=== PATIENT | female | born 1965 | race Caucasian/White ===

== ENCOUNTER 2024-11-20 14:09 | Emergency (ER) | payer BC, SELFPAY ==
--- NOTE | ~2024-11-20 | XR_ITS ---
XR foot LT min 3V Ordering provider: Sherry Benoit APRN History: . rolled injury . Comparison: None. FINDINGS: BONES: No acute fracture or dislocation. Bony fragments seen inferior to the navicular bone most like ly old fracture or nonunited apophysis. Clinical correlation for tenderness in the area advised. Calcaneus spur. Ossification of the insertion of the tendo Achilles. JOINT SPACES: Osteoarthritic changes of the first metatarsophalangeal joint. Osteoarthritic changes o f the second, third and fourth tarsometatarsal joints. No tarsal coalition. SOFT TISSUES: Normal. IMPRESSION: Bony fragments near to the navicular bone. Evaluation for tenderness in the area is advised. Otherwis e, No acute osseous abnormality left foot. Reviewed, dictated and finalized at location A. DRY HELPER IMPRESSION: Bony fragments near to the navicular bone. Evaluation for tenderness in the are a is advised. Otherwise, No acute osseous abnormality left foot.
--- NOTE | ~2024-11-20 | XR_ITS ---
XR ankle LT min 3V Ordering provider: Sherry Benoit APRN History: . rolled injury . Comparison: None. FINDINGS: BONES: No acute fracture or dislocation. JOINT SPACES: The ankle mortise is normal. SOFT TISSUES: Soft tissue swelling over the lateral malleolus. Calcaneus spur. Ossification of the insertion of the tendo Achilles. IMPRESSION: No definite acute osseous abnormality left ankle. Reviewed, dictated and finalized at location A. OLOGY CLERK
[2024-11-20 14:18] VITALS: BP 154/93; PULSE 114; RESP 20; TEMP 36.7; O2SAT 100
--- NOTE | 2024-11-20 14:34 | ED.LOWEXIN ---
HPI - Extremity Injury (Lower) General Chief Complaint: Extremity Injury, Lower Stated Complaint: left foot big toe injury Source: patient Mode of arrival: ambulatory Limitations: no limitations History of Present Illness HPI Narrative: 59-year-old female presented for complaint of left foot and ankle pain after injury last night. States she [place] Unsure how she fell but thinks she rolled the ankle. Pain is across the top of the foot, lateral ankle, and great toe. She has been able to bear weight by 'limping.' Has not taken anything for pain. denies bruising or deformity, numbness, tingling or weakness. Related Data Home Medications ?Medication ?Instructions ?Recorded ?Confirmed ?Last Taken ?Type cyanocobalamin (vitamin B-12) 2,000 mcg PO DAILY 02/08/24 04/13/24 Unknown History 2,000 mcg tablet Allergies Allergy/AdvReac Type Severity Reaction Status Date / Time Penicillins Allergy Unknown Unknown Verified 11/20/24 14:39 Review of Systems Review of Systems: CONSTITUTIONAL: Denies body aches, fever, chills CARDIOVASCULAR: Denies chest pain, palpitations, or edema. RESPIRATORY: Denies cough or dyspnea. SKIN: Denies rash, itching, or wounds. MUSCULOSKELETAL: reports left ankle and foot pain NEUROLOGIC: Denies numbness, tingling, or weakness. All systems reviewed & are unremarkable except as noted in HPI and below PMFSH Social History Social History Smoking packs per day: 1 Smoking cigarettes per day: 20.0 Smoking status: Current every day smoker (has cut down from 2ppd to 1ppd) Alcohol intake: current Alcohol use details: one weekend a month Substance use: never Living arrangements: with family Occupation/Education: occupation Gender identity (if verbalized by the patient): Female Comments At time of signature, I have reviewed and agree with nursing past medical, surgical, social and family history unless otherwise noted. Please see nursing chart for further information. There is no relevant family history pertinent to the presenting complaint Exam Narrative: GENERAL: Well-appearing CHEST: Speaks in full sentences. No respiratory distress. HEART: Regular rate and rhythm. Normal and equal peripheral pulses. EXTREMITIES: Left foot mild tender with palpation to navicular bone area. Left foot tenderness with mild warmth and erythema to 1stMTP joint dorsal surface; Decreased ROM due to pain at the joint. Left ankle and foot with normal strength and sensation. slightly limited range of motion of ankle due to 1st mtp pain with movement. Moderate swelling over left lateral malleolus. No ecchymosis, No point tenderness to lateral malleolus. No open wounds, or obvious deformity; alignment normal, pulse palpable and equal bilaterally, skin warm, dry, pink. Capillary refill less than 3 seconds. SKIN: Warm, dry NEURO: Alert and oriented x3. PSYCH: Normal mood and affect Course Course Emergency Course: Patient is aware of diagnosis, understands and agrees to treatment plan. Anticipatory guidance given. Patient agrees to follow-up as directed and is aware of reasons to seek care at the emergency department. Portions of this record may have been created with voice recognition software Level of Care: Express Care Visit Vital Signs Vital signs: Vital Signs Temperature 98.1 F 11/20/24 14:18 Pulse Rate 114 H 11/20/24 14:18 Respiratory Rate 20 11/20/24 14:18 Blood Pressure 154/93 H 11/20/24 14:18 Pulse Oximetry 100 11/20/24 14:18 Oxygen Delivery Room Air 11/20/24 14:18 Temperature 98.1 F 11/20/24 14:18 Pulse Rate 114 H 11/20/24 14:18 Respiratory Rate 20 11/20/24 14:18 Blood Pressure 154/93 H 11/20/24 14:18 Pulse Oximetry 100 11/20/24 14:18 Oxygen Delivery Room Air 11/20/24 14:18 Reviewed MDM - Extremity Injury (Lower) MDM Narrative Medical decision making narrative: Discussed physical exam findings and Xray. Advised walking boot for the tenderness to the navicular bone area. Also concern for gout and will send Rx steroid.v/u. ISIAH applied. Advised supportive measures and signs/symptoms to go to the ER. Pt is appropriate for outpt treatment and f/u. Differential Diagnosis Differential diagnosis: Likely ankle sprain and strain, fracture of toe and ankle fracture Imaging Data Radiologist's impression: Patient: Giuliana Reyna : 1965 MR#: [id number] Age: 59 Acct:[id number] Loc: [facility] ADM Date: 11/20/24Attending Dr: Ordering Physician: Sherry Benoit APRN Date of Service: 11/20/24 Procedure(s): XR foot LT min 3V Accession Number(s): [id number] cc: Sherry Benoit APRN; Basia Rdz PA-C~ XR foot LT min 3V Ordering provider: Sherry Benoit APRN History: . rolled injury . Comparison: None. FINDINGS: BONES: No acute fracture or dislocation. Bony fragments seen inferior to the navicular bone most likely old fracture or nonunited apophysis. Clinical correlation for tenderness in the area advised. Calcaneus spur. Ossification of the insertion of the tendo Achilles. JOINT SPACES: Osteoarthritic changes of the first metatarsophalangeal joint. Osteoarthritic changes of the second, third and fourth tarsometatarsal joints. No tarsal coalition. SOFT TISSUES: Normal. IMPRESSION: Bony fragments near to the navicular bone. Evaluation for tenderness in the area is advised. Otherwise, No acute osseous abnormality left foot. Patient: Giuliana Reyna : 1965 MR#: [id number] Age: 59 Acct:[id number] Loc: [facility] ADM Date: 11/20/24Attending Dr: Ordering Physician: Sherry Benoit APRN Date of Service: 11/20/24 Procedure(s): XR ankle LT min 3V Accession Number(s): [id number] cc: Sherry Benoit APRN; Basia Rdz PA-C~ XR ankle LT min 3V Ordering provider: Sherry Benoit APRN History: . rolled injury . Comparison: None. FINDINGS: BONES: No acute fracture or dislocation. JOINT SPACES: The ankle mortise is normal. SOFT TISSUES: Soft tissue swelling over the lateral malleolus. Calcaneus spur. Ossification of the insertion of the tendo Achilles. IMPRESSION: No definite acute osseous abnormality left ankle. Discharge Plan Discharge Clinical Impression: Ankle sprain and strain, Acute foot pain Patient Disposition: Home, Self-Care Condition: Stable Instructions: Ankle Sprain (ED), Gout (ED) Additional Instructions: Rest and elevate the left leg; bear weight as tolerated Recommend a walking boot. You can get them at [facility] or online. Apply ice 15-20 minute intervals several times a day Keep it wrapped with ISIAH or use a soft ankle splint Motrin 800mg every 8 hours, alternate with Tylenol 1000mg every 8 hours as needed Gout is a form of inflammatory?arthritis that causes pain and swelling in your joints. A buildup of excess uric acid in your body causes gout. Your body naturally makes uric acid when it breaks down chemicals called purines found in certain foods and drinks. Your kidneys usually filter uric acid out of your blood. Gout symptoms come and go in episodes called flares or gout attacks.?Gout attacks usually last a week or two. You might have some flares that last longer than others, and some might cause more severe symptoms. Between attacks, you might not experience any gout symptoms. Risks include: Parent/grandparent with gout Eating a lot of animal proteins ? especially animal flesh, shellfish and foods that contain organ meat. Drinking alcohol regularly. Taking a diuretic medication (water pills). Taking immunosuppressants Take medication as directed Recommend low purine diet Follow up with primary care provider/grounds restoration specialist in 1 week Go to the ER for worsening symptoms or concerns Patient Language: Macedonian Prescriptions: New methylprednisolone [Medrol (Walt)] 4 mg tablets,dose pack See Rx Instructions .ROUTE .COMPLEX Qty: 21 0RF Rx Instructions: orally per package directions No Action cyanocobalamin (vitamin B-12) 2,000 mcg tablet 2,000 mcg PO DAILY Patient Comments: alprazolam 0.5 mg tablet 0.5 mg PO BID PRN (Reason: anxiety) Qty: 60 2RF albuterol sulfate 90 mcg/actuation HFA aerosol inhaler 1 - 2 puff inhalation Q4-6H PRN (Reason: shortness of breath or wheezing) Qty: 8.5 0RF Follow-up/Referrals: Ziggy Velázquez MD [Physician] - Basia Rdz PA-C [Primary Care Provider] - Time of Disposition: 15:25
== END 2024-11-20 15:30 | disposition home or self-care (01) ==
PROVIDERS: Emergency Provider Nurse Practitioner Family; PCP Physician Assistant Medical
DX: S93.402A Sprain of unspecified ligament of left ankle, initial encounter (principal); S96.912A Strain of unspecified muscle and tendon at ankle and foot level, left foot, initial encounter; W01.0XXA Fall on same level from slipping, tripping and stumbling without subsequent striking against object, initial encounter; M79.675 Pain in left toe(s); M79.672 Pain in left foot; F17.210 Nicotine dependence, cigarettes, uncomplicated
CPT/HCPCS: 73610; 73630; 99213; G0463

== ENCOUNTER 2025-04-20 14:05 | Outpatient (CLI) | payer BC, SELFPAY ==
--- NOTE | ~2025-04-20 | MMUS_ITS ---
EXAMINATION: MM diagnostic [facility] BI w tae, US breast RT limited HISTORY: Palpable right breast lump TECHNIQUE: Additional 3-D tomosynthesis images of the breasts were performed and synthetic 2-D images were generated. CAD analysis was submitted and interpreted. High resolution Limited right breast ult rasound was performed. COMPARISON: No prior studies for comparison. BREAST PARENCHYMAL COMPOSITION: Not dense: There are scattered areas of fibroglandular density. FINDINGS: MAMMOGRAPHIC FINDINGS: There are no suspicious masses, calcifications or architectural distortion in either breast to sugges t malignancy. ULTRASOUND: Limited right breast ultrasound: Normal heterogeneous echotexture without focal solid or cystic mass. IMPRESSION: 1. No evidence for malignancy in either breast. 2. Routine yearly screening mammogram and regular clinical breast examination are recommended. BI-RADS Category 1: Negative Reviewed, dictated and finalized at location B. IMPRESSION: 1. No evidence for malignancy in either breast. 2. Routine yearly screening mammogram and regular clinical breast examination a re recommended. BI-RADS Category 1: Negative
--- OUTSIDE RECORDS SUMMARY | 2025-04-20 14:17 | XMS_ITS | Clinical Summary ---
Author Organization [facility] Address [address] [place] [address] Phone Care Team Providers Care Communications Senior Associate Name Role Phone Unavailable Primary Care Provider Unavailabl e Allergies Active Allergy Reactions Criticality Noted Date Comments Penicillins Unknown 06/14/2021 As a child, rash, shortness of breath/difficulty breathing. Has not been challenged as adult Medications ALPRAZolam (XANAX) 0.5 mg tablet Take 0.5 mg by mouth 2 times daily as needed for Anxiety. Active metroNIDAZOLE (FLAGYL) 500 mg tablet Take 1 Tablet (500 mg) by mouth 3 times daily for 7 days. 21 Tablet 06/16/2021 1:02 PM CDT 06/16/2021 Active ciprofloxacin HCl (Cipro) 500 mg tablet Take 1 Tablet (500 mg) by mouth 2 times daily for 7 days. 14 Tablet 06/16/2021 1:02 PM CDT 06/16/2021 Active Active Problems Problem Noted Date Diagnosed Date Diverticulitis 06/15/2021 Leukocytosis (leucocytosis) 06/15/2021 Tobacco use 06/15/2021 Anxiety 06/15/2021 Obesity (BMI 30.0-34.9) 06/15/2021 Social History Tobacco Use Types Packs/Day Years Used Date Smoking Tobacco: Every Day Cigarettes Smokeless Tobacco: Never Alcohol Use Standard Drinks/Week Comments Yes 0 (1 standard drink = 0.6 oz pur e alcohol) social Comments Unknown Sex and Gender Information Value Date Recorded Sex Assigned at Not on file Legal Sex Female 5:30 PM CDT Gender Identity Not on file Sexual Orientation Not on file Last Filed Vital Signs Vital Sign Reading Time Taken Comments Blood Pressure 123/90 06/16/2021 11:16 AM CDT Pulse 64 06/16/2021 11:16 AM CDT Temperature 36.8 C (98.2 F) 06/16/2021 11:16 AM CDT Respiratory Rate 16 06/16/2021 11:16 AM CDT Oxygen Saturation 95% 06/16/2021 11:16 AM CDT Inhaled Oxygen Concentration - - Weight 87.3 kg (192 lb 6.4 oz) 06/15/2021 8:06 A M CDT Height 160 cm (5' 3) 06/15/2021 8:06 AM CDT Body Mass Index 34.08 06/15/2021 8:06 AM CDT Plan of Treatment Health Maintenance Due Date Last Done Comments DTAP/TDAP/TD VACCINES (1 - Tdap) 1985 HEPATITIS B VACCINES (1 of 3 - 19+ 3-dose series) 04/1985 HPV/Cotest (21-29) 1987 CERVICAL CANCER SCREENING 1996 HPV/Cotest (30-65) 1996 PAP SMEAR 1996 BREAST CANCER SCREENING 2006 COLORECTAL SCREENING 2011 Colorectal Cancer Screening 2011 FIT-DNA Q 3 years 2011 FIT/FOBT Q 1 year 2011 Flex Sig/CT Colonography Q 5 years 2011 ZOSTER VACCINE (1 of 2) 2016 INFLUENZA VACCINE (#1) 2024 Insurance RX [employer] (INTERNAL) [facility] Advance Directives For more information, please contact: [phone] * Full Code (Latest Code Status on File) Date Activated Date Inactivated Comments 06/15/2021 6:52 AM 06/16/2021 3:13 PM
--- OUTSIDE RECORDS SUMMARY | 2025-04-20 14:17 | XMS_ITS | Clinical Summary ---
Author Organization [facility] Address [address] [place] [address] Care Team Providers Care Running Rigger Name Role Phone Unavailable Primary Care Provider Unavailabl e Source Comments [facility],non-owned Affiliates and Associated Physician Practices is amultiple site organization consisting of ambulatory clinics and hospital sitesin [place], [place], [place] and [place]. This disclosure is being madepursuant to the Care Everywhere program and may not contain all information available regarding this patient. Last updated 18.[facility] Allergies Active Allergy Reactions Criticality Noted Date Comments Penicillins Unknown 06/14/2021 As a child, rash, shortness of breath/difficulty breathing. Has not been challenged as adult Social History Tobacco Use Types Packs/Day Years Used Date Smoking Tobacco: Never Assessed Comments Unknown Sex and Gender Information Value Date Recorded Sex Assigned at Not on file Legal Sex Female 3:27 AM TREE SURGEON HELPER Gender Identity Not on file Sexual Orientation Not on file Last Filed Vital Signs Vital Sign Reading Time Taken Comments Blood Pressure 117/82 07/01/2022 11:33 PM CDT Pulse 74 07/01/2022 11:33 PM CDT Temperature 36.7 C (98 F) 07/01/2022 11:33 PM CDT Respiratory Rate 16 07/01/2022 11:33 PM CDT Oxygen Saturation 98% 07/01/2022 11:33 PM CDT Inhaled Oxygen Concentration - - Weight 93 kg (205 lb) 07/01/2022 9:01 PM CDT Height 160 cm (5' 3) 07/01/2022 9:01 PM CDT Body Mass Index 36.31 07/01/2022 9:01 PM CDT Plan of Treatment Health Maintenance Due Date Last Done Comments OGMARLIN (AGES 45-75) - COL ON CA SCREENING 1965 COLON MONITORING 1966 COLONOSCOPY - COLON CA SCREENING 1966 CT COLONOGRAPHY - COLON CA SCREENING 1966 Colorectal Cancer Screening 1966 FIT - COLON CA SCREENING 1966 FLEX SIG - COLON CA SCREENING 1966 LIPID TESTING 1966 MAMMOGRAM 1966 PAP SMEAR 1966 HIV SCREENING 1981 HEPATITIS C SCREENING 09/08/1984 DTAP/TDAP/TD VACCINES (1 - Tdap) 1985 HEPATITIS B VACCINE (1 of 3 - 19+ 3-dose series) 1985 PNEUMOCOCCAL VACCINE 50+ (1 of 1 - PCV) 2016 ZOSTER VACCINE (1 of 2) 2016 COVID-19 VACCINE ( - 2023-2 5 season) 2024 12/21/2020, 11/30/2020 DEPRESSION SCREENING 11/08/2024 INFLUENZA VACCINE (Season Ended) 2025 HIB VACCINE Aged Out No longer eligi ble based on patient's age to complete this topic HPV VACCINE Aged Out No longer eligi ble based on patient's age to complete this topic MENINGOCOCCAL (Group B) VACCINE SHARED DECISION-MAKING Aged Out No longer eligible based on patient's age to complete this topic MENINGOCOCCAL GROUPS A/C/Y/W VACCINE Aged Out No longer eligible b ased on patient's age to complete this topic
== END 2025-04-20 14:06 | disposition home or self-care (01) ==
LOC: ANHIMG 14:15
PROVIDERS: PCP Nurse Practitioner Family; Visit Provider Nurse Practitioner Family
DX: N63.10 Unspecified lump in the right breast, unspecified quadrant (principal)
CPT/HCPCS: 76642; 77062; 77066; G0279